=== PATIENT | male | born 1950 | race Caucasian/White ===

== ENCOUNTER 2016-10-31 00:44 | Inpatient (IN) | payer MEDICARE, OTHER ==
[~2016-10-31] VITALS: Ht 185.4 cm; Wt 99.0 kg
[~2016-10-31 00:44] MED LIST: ACTOS45 MG PO; ALBUTEROL IN200 PUFF INH; CARDIZEM CD360 MG PO; GEODON80 MG PO; GLUCOPHAGE1000 MG PO; KLONOPIN1 MG PO; LASIX40 MG PO; LEVAQUIN750 MG PO; LIPITOR10 MG PO; PANTOPRAZOLE SO40 MG PO; PREDNISONE10 MG PO; REQUIP2 MG PO; TUDORZA PRESS400 MCG INH; XOPENEX0.63 MG/3 NEB
[2016-10-31 01:04] LABS: ARTERIAL BLD GAS O2 SATURATION 79.1 % (94-98); ARTERIAL BLOOD GAS HCO3 32.5 mmol/L (22-26)
[2016-10-31 01:06] LABS: ARTERIAL BLOOD GAS PCO2 82.5 mmHg (35-48); ARTERIAL BLOOD GAS pH 7.22 (7.35-7.45)
[2016-10-31 01:33] LABS: BASO # 0.1 10_X3_uL (0.0-0.1); BASO % 0.5 % (0.2-1.2); EOS # 0.3 10_X3_uL (0.0-0.5); EOS % 2.1 % (0.8-7.0); GRAN # 9.6 10_X3_uL (1.8-5.4); GRAN % 62.2 % (34.0-67.9); HEMATOCRIT 46.8 % (40-51); LYMPH # 4.1 10_X3_uL (1.3-3.6); LYMPH % 26.7 % (21.8-53.1); MEAN CORPUSCULAR HEMOGLOBIN 31.3 pg (27.0-33.0); MEAN CORPUSCULAR HGB CONC 32.1 g/dL (32.0-36.0); MEAN CORPUSCULAR VOLUME 97.5 fL (79-92); MEAN PLATELET VOLUME 10.6 fl (7.5-11.5); MONO # 1.3 10_X3_uL (0.3-0.8); MONO % 8.5 % (5.3-12.2); PLATELET COUNT 237 x10_3/uL (163-337); RED CELL DISTRIBUTION WIDTH 15.4 % (11.6-14.4); WHITE BLOOD COUNT 15.4 x10_3/uL (4.2-9.1)
[2016-10-31 01:35] LABS: INR 1.4 (1.0-1.1); PARTIAL THROMBOPLASTIN TIME 31.3 SECONDS (21.8-28.4); PROTHROMBIN TIME (PATIENT) 13.9 SECONDS (9.6-10.8)
[2016-10-31 01:47] LABS: ALBUMIN 3.9 gm/dL (3.4-5.0); ALKALINE PHOSPHATASE 85 U/L (50-136); ALT/SGPT 60 U/L (7.53-40.17); AST/SGOT 75 U/L (6.66-35.34); BILIRUBIN,TOTAL 0.29 mg/dL (0.0-1.0); BLOOD UREA NITROGEN 27 mg/dL (7-18); CALCIUM 10.2 mg/dL (8.7-10.7); CARBON DIOXIDE 26 mmol/L (21-32); CREATINE KINASE 112 U/L (35-232); CREATININE 1.1 mg/dL (0.6-1.3); GLUCOSE,RANDOM 323 mg/dL (70-99); POTASSIUM 5.3 mmol/L (3.5-5.1); SODIUM 143 mmol/L (136-145); TOTAL PROTEIN 7.4 gm/dL (6.4-8.2)
[2016-10-31 02:27] LABS: ARTERIAL BLD GAS O2 SATURATION 96.4 % (94-98); ARTERIAL BLOOD GAS BASE EXCESS 3.1 mmol/L (-2.0-3.0); ARTERIAL BLOOD GAS HCO3 30.2 mmol/L (22-26); ARTERIAL BLOOD GAS pH 7.32 (7.35-7.45)
[2016-10-31 08:11] LABS: HEMATOCRIT 43.3 % (40-51); HEMOGLOBIN 13.8 g/dL (13.7-17.5); MEAN CORPUSCULAR HEMOGLOBIN 30.9 pg (27.0-33.0); MEAN CORPUSCULAR HGB CONC 31.9 g/dL (32.0-36.0); MEAN CORPUSCULAR VOLUME 97.1 fL (79-92); MEAN PLATELET VOLUME 10.6 fl (7.5-11.5); RED BLOOD COUNT 4.46 x10_6/uL (4.6-6.1); RED CELL DISTRIBUTION WIDTH 15.3 % (11.6-14.4); WHITE BLOOD COUNT 16.9 x10_3/uL (4.2-9.1)
[2016-10-31 08:40] LABS: AHDL CHOLESTEROL 51 mg/dL (>40); BLOOD UREA NITROGEN 32 mg/dL (7-18); CARBON DIOXIDE 27 mmol/L (21-32); CHOLESTEROL 135 mg/dL (0-200); GLUCOSE,RANDOM 257 mg/dL (70-99); LDL CHOLESTEROL 65 mg/dL (0-99); POTASSIUM 4.7 mmol/L (3.5-5.1); SODIUM 140 mmol/L (136-145); TRIGLYCERIDES 90 mg/dL (30-200)
[2016-10-31 13:58] LABS: CKMB 4.2 ng/ml (0.0-5.0)
[2016-10-31 13:59] LABS: TROP-I < 0.30 NG/ML (0.00-0.30)
[2016-11-01 06:23] LABS: HEMATOCRIT 43.3 % (40-51); HEMOGLOBIN 13.9 g/dL (13.7-17.5); MEAN CORPUSCULAR HEMOGLOBIN 30.6 pg (27.0-33.0); MEAN CORPUSCULAR HGB CONC 32.1 g/dL (32.0-36.0); MEAN CORPUSCULAR VOLUME 95.4 fL (79-92); MEAN PLATELET VOLUME 10.2 fl (7.5-11.5); RED BLOOD COUNT 4.54 x10_6/uL (4.6-6.1); RED CELL DISTRIBUTION WIDTH 15.1 % (11.6-14.4)
[2016-11-01 06:27] LABS: WHITE BLOOD COUNT 19.3 x10_3/uL (4.2-9.1)
[2016-11-01 06:36] LABS: BLOOD UREA NITROGEN 34 mg/dL (7-18); CALCIUM 9.2 mg/dL (8.7-10.7); CARBON DIOXIDE 28 mmol/L (21-32); GLUCOSE,RANDOM 201 mg/dL (70-99); POTASSIUM 4.1 mmol/L (3.5-5.1); SODIUM 138 mmol/L (136-145)
[2016-11-01 11:28] LABS: ARTERIAL BLD GAS O2 SATURATION 92.4 % (94-98); ARTERIAL BLOOD GAS BASE EXCESS 4.4 mmol/L (-2.0-3.0); ARTERIAL BLOOD GAS HCO3 28.5 mmol/L (22-26); ARTERIAL BLOOD GAS PCO2 42.2 mmHg (35-48); ARTERIAL BLOOD GAS pH 7.45 (7.35-7.45)
[2016-11-02 06:49] LABS: GRAN # 16.5 10_X3_uL (1.8-5.4); GRAN % 89.4 % (34.0-67.9); HEMOGLOBIN 14.4 g/dL (13.7-17.5); LYMPH # 1.2 10_X3_uL (1.3-3.6); LYMPH % 6.2 % (21.8-53.1); MEAN CORPUSCULAR HEMOGLOBIN 30.9 pg (27.0-33.0); MEAN CORPUSCULAR HGB CONC 32.7 g/dL (32.0-36.0); MEAN CORPUSCULAR VOLUME 94.4 fL (79-92); MEAN PLATELET VOLUME 10.2 fl (7.5-11.5); MONO # 0.8 10_X3_uL (0.3-0.8); MONO % 4.4 % (5.3-12.2); PLATELET COUNT 272 x10_3/uL (163-337); RED BLOOD COUNT 4.66 x10_6/uL (4.6-6.1); RED CELL DISTRIBUTION WIDTH 15.2 % (11.6-14.4); WHITE BLOOD COUNT 18.5 x10_3/uL (4.2-9.1)
[2016-11-02 07:31] LABS: ALBUMIN 3.3 gm/dL (3.4-5.0); ALKALINE PHOSPHATASE 61 U/L (50-136); ALT/SGPT 32 U/L (7.53-40.17); AST/SGOT 13 U/L (6.66-35.34); BLOOD UREA NITROGEN 38 mg/dL (7-18); CALCIUM 8.5 mg/dL (8.7-10.7); CARBON DIOXIDE 30 mmol/L (21-32); CREATININE 1.2 mg/dL (0.6-1.3); GLUCOSE,RANDOM 215 mg/dL (70-99); POTASSIUM 3.8 mmol/L (3.5-5.1); SODIUM 140 mmol/L (136-145); TOTAL PROTEIN 6.5 gm/dL (6.4-8.2)
[2016-11-02 12:01] LABS: CKMB 2.3 ng/ml (0.0-5.0)
[2016-11-02 12:06] LABS: TROP-I < 0.30 NG/ML (0.00-0.30)
[2016-11-02 12:42] LABS: ARTERIAL BLD GAS O2 SATURATION 95.5 % (94-98); ARTERIAL BLOOD GAS BASE EXCESS 4.7 mmol/L (-2.0-3.0); ARTERIAL BLOOD GAS HCO3 31.3 mmol/L (22-26); ARTERIAL BLOOD GAS PCO2 55.3 mmHg (35-48); ARTERIAL BLOOD GAS pH 7.37 (7.35-7.45)
[2016-11-03 03:10] LABS: HEMATOCRIT 46.2 % (40-51); MEAN CORPUSCULAR HEMOGLOBIN 30.8 pg (27.0-33.0); MEAN CORPUSCULAR HGB CONC 32.5 g/dL (32.0-36.0); MEAN CORPUSCULAR VOLUME 94.9 fL (79-92); MEAN PLATELET VOLUME 9.9 fl (7.5-11.5); RED BLOOD COUNT 4.87 x10_6/uL (4.6-6.1); RED CELL DISTRIBUTION WIDTH 15.2 % (11.6-14.4); WHITE BLOOD COUNT 18.1 x10_3/uL (4.2-9.1)
[2016-11-03 03:20] LABS: BLOOD UREA NITROGEN 38 mg/dL (7-18); CALCIUM 8.5 mg/dL (8.7-10.7); CARBON DIOXIDE 33 mmol/L (21-32); CREATININE 1.2 mg/dL (0.6-1.3); GLUCOSE,RANDOM 238 mg/dL (70-99); POTASSIUM 3.6 mmol/L (3.5-5.1); SODIUM 142 mmol/L (136-145)
[2016-11-04 07:06] LABS: ALBUMIN 3.2 gm/dL (3.4-5.0); ALKALINE PHOSPHATASE 52 U/L (50-136); ALT/SGPT 31 U/L (7.53-40.17); AST/SGOT 19 U/L (6.66-35.34); BILIRUBIN,TOTAL 0.58 mg/dL (0.0-1.0); BLOOD UREA NITROGEN 31 mg/dL (7-18); CALCIUM 8.3 mg/dL (8.7-10.7); CARBON DIOXIDE 32 mmol/L (21-32); GLUCOSE,RANDOM 76 mg/dL (70-99); POTASSIUM 3.2 mmol/L (3.5-5.1); SODIUM 141 mmol/L (136-145); TOTAL PROTEIN 6.3 gm/dL (6.4-8.2)
[2016-11-04 07:07] LABS: BASO % 0.1 % (0.2-1.2); EOS % 0.1 % (0.8-7.0); GRAN # 9.2 10_X3_uL (1.8-5.4); GRAN % 67.3 % (34.0-67.9); HEMOGLOBIN 15.3 g/dL (13.7-17.5); LYMPH # 2.7 10_X3_uL (1.3-3.6); LYMPH % 19.4 % (21.8-53.1); MEAN CORPUSCULAR HEMOGLOBIN 30.8 pg (27.0-33.0); MEAN CORPUSCULAR HGB CONC 32.6 g/dL (32.0-36.0); MEAN CORPUSCULAR VOLUME 94.8 fL (79-92); MEAN PLATELET VOLUME 10.4 fl (7.5-11.5); MONO # 1.8 10_X3_uL (0.3-0.8); MONO % 13.1 % (5.3-12.2); PLATELET COUNT 278 x10_3/uL (163-337); RED BLOOD COUNT 4.96 x10_6/uL (4.6-6.1); WHITE BLOOD COUNT 13.7 x10_3/uL (4.2-9.1)
[2016-11-05 07:02] LABS: HEMATOCRIT 46.8 % (40-51); HEMOGLOBIN 15.4 g/dL (13.7-17.5); MEAN CORPUSCULAR HEMOGLOBIN 30.9 pg (27.0-33.0); MEAN CORPUSCULAR HGB CONC 32.9 g/dL (32.0-36.0); MEAN PLATELET VOLUME 10.3 fl (7.5-11.5); RED BLOOD COUNT 4.98 x10_6/uL (4.6-6.1); WHITE BLOOD COUNT 12.9 x10_3/uL (4.2-9.1)
[2016-11-05 07:37] LABS: ALBUMIN 3.1 gm/dL (3.4-5.0); ALKALINE PHOSPHATASE 50 U/L (50-136); ALT/SGPT 37 U/L (7.53-40.17); AST/SGOT 22 U/L (6.66-35.34); BILIRUBIN,TOTAL 0.53 mg/dL (0.0-1.0); BLOOD UREA NITROGEN 27 mg/dL (7-18); CALCIUM 8.6 mg/dL (8.7-10.7); CARBON DIOXIDE 36 mmol/L (21-32); GLUCOSE,RANDOM 67 mg/dL (70-99); POTASSIUM 3.2 mmol/L (3.5-5.1); SODIUM 145 mmol/L (136-145); TOTAL PROTEIN 6.2 gm/dL (6.4-8.2)
[2016-11-05 15:28] LABS: BLOOD UREA NITROGEN 24 mg/dL (7-18); CALCIUM 8.4 mg/dL (8.7-10.7); CARBON DIOXIDE 35 mmol/L (21-32); GLUCOSE,RANDOM 272 mg/dL (70-99); POTASSIUM 3.8 mmol/L (3.5-5.1); SODIUM 136 mmol/L (136-145)
== END 2016-11-05 17:10 | disposition home or self-care (01) | DRG 189 ==
LOC: ER 00:44 → MS 02:40
PROVIDERS: Internal Medicine; ADMIT Family Medicine
DX: J96.02 Acute respiratory failure with hypercapnia (principal); J18.9 Pneumonia, unspecified organism; J44.0 Chronic obstructive pulmonary disease with (acute) lower respiratory infection; J44.1 Chronic obstructive pulmonary disease with (acute) exacerbation; J60 Coalworker's pneumoconiosis; I50.9 Heart failure, unspecified; E11.65 Type 2 diabetes mellitus with hyperglycemia; I48.91 Unspecified atrial fibrillation; I11.0 Hypertensive heart disease with heart failure; F17.210 Nicotine dependence, cigarettes, uncomplicated; F17.220 Nicotine dependence, chewing tobacco, uncomplicated; R42 Dizziness and giddiness; F41.9 Anxiety disorder, unspecified; F32.9 Major depressive disorder, single episode, unspecified; Z87.442 Personal history of urinary calculi; R55 Syncope and collapse; Z99.81 Dependence on supplemental oxygen; N42.9 Disorder of prostate, unspecified; R39.198 Other difficulties with micturition; Z98.890 Other specified postprocedural states; B96.89 Other specified bacterial agents as the cause of diseases classified elsewhere; E87.6 Hypokalemia; R00.0 Tachycardia, unspecified; G47.00 Insomnia, unspecified; Z79.899 Other long term (current) drug therapy; Z79.01 Long term (current) use of anticoagulants
CPT/HCPCS: 36415; 36600; 71010; 71250; 80048; 80053; 80061; 80162; 80202; 82550; 82553; 82803; 82962; 83036; 83605; 83880; 85025; 85610; 85730; 86738; 87040; 87070; 87205; 87449; 93005; 93041; 93306; 94640; 94644; 94660; 94664; 96365; 96375; 99070; 99284; 99285-25; J2543; J2930; J3370